=== PATIENT | male | born 1960 | race African-American/Black ===

== ENCOUNTER 2023-05-24 13:00 | Emergency (ER) | payer OTHER ==
[~2023-05-24] VITALS: Ht 167.6 cm; Wt 59.0 kg
[2023-05-24 13:06] VITALS: BP 178/121; PULSE 82; RESP 20; TEMP 97.7; O2SAT 99
[2023-05-24 14:10] LABS: BASOPHILS # (AUTO) 0.1 K/uL (0.00-0.22); BASOPHILS % (AUTO) 1.2 % (0.0-2.0); EOSINOPHILS # (AUTO) 0.4 K/uL (0-0.4); EOSINOPHILS % (AUTO) 6.8 % (0.0-4.0); HEMATOCRIT 45.4 % (36-52); HEMOGLOBIN 15.8 g/dL (12.0-18.0); LYMPHOCYTES # (AUTO) 1.6 K/uL (2.0-11.5); LYMPHOCYTES % (AUTO) 25.1 % (20.5-51.1); MEAN CORPUSCULAR HEMOGLOBIN 31 pg (27-31); MEAN CORPUSCULAR HGB CONC 35 g/dL (33-37); MONOCYTES # (AUTO) 0.6 K/uL (0.8-1.0); MONOCYTES % (AUTO) 9.8 % (1.7-9.3); NEUTROPHILS # (AUTO) 3.6 K/uL (1.8-7.7); NEUTROPHILS % (AUTO) 57.1 % (42.2-75.2); PLATELET COUNT (AUTO) 256 K/uL (140-450); RED BLOOD CELL COUNT(AUTO) 5.15 MIL/uL (4.20-6.10); RED CELL DISTRIBUTION WIDTH 13.2 % (11.6-13.7); WHITE BLOOD COUNT (AUTO) 6.2 K/uL (4.8-10.8)
[2023-05-24 14:18] LABS: ANION GAP 9.2 (8-16); CALCIUM 8.9 mg/dL (8.5-10.1); CARBON DIOXIDE 30.5 mmol/L (21-32); CREATININE 1.7 mg/dL (0.6-1.3); POTASSIUM 4.7 mmol/L (3.5-5.1)
[2023-05-24] MEDS ORDERED: LOSARTAN 50 MG TAB PO STA (14:33)
[2023-05-24] MEDS ORDERED: LABETALOL 20 MG/4 ML VIAL IVP ONE (14:35)
[2023-05-24] MEDS ORDERED: LOSA50TA57 PO (15:57)
[2023-05-24] MEDS ORDERED: hydrALAZINE 20 MG/ML VIAL IVP ONE (16:30)
[2023-05-24 17:53] VITALS: BP 149/89; PULSE 83; RESP 21; O2SAT 99
== END 2023-05-24 17:53 | disposition home or self-care (01) ==
LOC: MED 13:00
DX: I10 Essential (primary) hypertension (principal); N28.9 Disorder of kidney and ureter, unspecified; I48.92 Unspecified atrial flutter; Z79.899 Other long term (current) drug therapy
CPT/HCPCS: 36415; 71045; 80048; 83880; 84484; 85025; 93005; 96374; 96375; 99285; J0360; J3490

== ENCOUNTER 2023-10-08 12:55 | Emergency (ER) | payer OTHER ==
[~2023-10-08] VITALS: Ht 167.6 cm; Wt 61.4 kg
[~2023-10-08 12:55] MED LIST: LOSA50TA57 PO
[2023-10-08 13:13] VITALS: BP 187/93; PULSE 61; RESP 17; TEMP 97.8; O2SAT 99
== END 2023-10-08 13:33 | disposition home or self-care (01) ==
LOC: MED 12:55
DX: I10 Essential (primary) hypertension (principal); Z79.899 Other long term (current) drug therapy
CPT/HCPCS: 99281